=== PATIENT | male | born 1960 | race Caucasian/White ===

== ENCOUNTER → 2017-12-17 18:02 | Outpatient (CLI) | payer MEDICAID ==
[2017-12-17 18:49] LABS: BASOPHILS 0.1 % (0-2); EOSINOPHILS 0 % (0-7); HEMATOCRIT 30.7 % (42.0-54.0); HEMOGLOBIN 9.6 g/dL (13.5-17.5); IMMATURE GRANULOCYTES 0.1 % (0-5); LYMPHOCYTES 38.9 % (15-50); MCH 29.4 pg (26.0-34.0); MCHC 31.3 g/dL (31.0-37.0); MCV 94.2 fL (80.0-100.0); MEAN PLATELET VOLUME 11.6 fL (7.4-10.4); MONOCYTES 9.4 % (2-11); NEUTROPHILS 51.5 % (40-80); PLATELET COUNT 203 10x3/uL (130-400); RBC 3.26 10x6/uL (4.20-6.10); RDW 14.8 % (11.5-14.5)
[2017-12-17 19:13] LABS: ALKALINE PHOSPHATASE 260 U/L (46-116); ALT (SGPT) 32 U/L (10-68); BILIRUBIN - TOTAL 0.33 mg/dL (0.2-1.3); CALC OSMOLALITY 269 mosm/kg (275-300); CALCIUM 8.5 mg/dL (8.5-10.1); CARBON DIOXIDE 27.5 mmol/L (21.0-32.0); CHLORIDE - SERUM 98 mmol/L (98-107); CREATININE - SERUM 0.8 mg/dL (0.6-1.3); GLUCOSE 126 mg/dL (74-106); MAGNESIUM - SERUM 1.9 mg/dL (1.8-2.4); PHOSPHOROUS 2.6 mg/dL (2.5-4.9); POTASSIUM - SERUM 3.8 mmol/L (3.5-5.1); PROTEIN - SERUM 8.1 g/dL (6.4-8.2); SODIUM 132 mmol/L (136-145); TRIGLYCERIDE 70 mg/dL (30-200); UREA NITROGEN 21 mg/dL (7-18); eGFR NON AFRICAN AMERICAN > 90 mL/min (90-120)
== END | disposition home or self-care (01) ==
LOC: D.LABREF 18:02
PROVIDERS: Family Medicine
DX: K63.2 Fistula of intestine (principal)

== ENCOUNTER → 2017-12-22 13:38 | Outpatient (CLI) | payer MEDICAID ==
[2017-12-22 16:16] LABS: BASOPHILS 0.1 % (0-2); EOSINOPHILS 0 % (0-7); HEMATOCRIT 31.3 % (42.0-54.0); HEMOGLOBIN 9.9 g/dL (13.5-17.5); IMMATURE GRANULOCYTES 0.3 % (0-5); LYMPHOCYTES 34.1 % (15-50); MCH 29.6 pg (26.0-34.0); MCHC 31.6 g/dL (31.0-37.0); MCV 93.4 fL (80.0-100.0); MEAN PLATELET VOLUME 11.5 fL (7.4-10.4); MONOCYTES 6.9 % (2-11); NEUTROPHILS 58.6 % (40-80); PLATELET COUNT 230 10x3/uL (130-400); RBC 3.35 10x6/uL (4.20-6.10); RDW 14.9 % (11.5-14.5); WBC 6.9 10x3/uL (4.8-10.8)
[2017-12-22 16:35] LABS: ALBUMIN 2.2 g/dL (3.4-5.0); ALKALINE PHOSPHATASE 293 U/L (46-116); ALT (SGPT) 55 U/L (10-68); BILIRUBIN - DIRECT 0.09 mg/dL (0.00-0.30); BILIRUBIN - INDIRECT 0.22 mg/dL (0.00-1.00); BILIRUBIN - TOTAL 0.31 mg/dL (0.2-1.3); CALC OSMOLALITY 273 mosm/kg (275-300); CARBON DIOXIDE 28.3 mmol/L (21.0-32.0); CHLORIDE - SERUM 98 mmol/L (98-107); CREATININE - SERUM 0.9 mg/dL (0.6-1.3); GLUCOSE 116 mg/dL (74-106); MAGNESIUM - SERUM 1.9 mg/dL (1.8-2.4); PHOSPHOROUS 2.8 mg/dL (2.5-4.9); POTASSIUM - SERUM 3.8 mmol/L (3.5-5.1); PROTEIN - SERUM 8.5 g/dL (6.4-8.2); SODIUM 135 mmol/L (136-145); TRIGLYCERIDE 80 mg/dL (30-200); UREA NITROGEN 20 mg/dL (7-18); eGFR NON AFRICAN AMERICAN > 90 mL/min (90-120)
== END | disposition home or self-care (01) ==
LOC: D.LABREF 13:38
PROVIDERS: Family Medicine
DX: K63.2 Fistula of intestine (principal); T81.30XA Disruption of wound, unspecified, initial encounter

== ENCOUNTER → 2018-01-05 14:02 | Outpatient (CLI) | payer MEDICAID ==
[2018-01-05 15:32] LABS: BASOPHILS 0.3 % (0-2); EOSINOPHILS 0 % (0-7); HEMATOCRIT 32.5 % (42.0-54.0); HEMOGLOBIN 10.2 g/dL (13.5-17.5); LYMPHOCYTES 36.5 % (15-50); MCH 29.1 pg (26.0-34.0); MCHC 31.4 g/dL (31.0-37.0); MCV 92.6 fL (80.0-100.0); MEAN PLATELET VOLUME 11.6 fL (7.4-10.4); MONOCYTES 7.4 % (2-11); NEUTROPHILS 55.8 % (40-80); PLATELET COUNT 228 10x3/uL (130-400); RBC 3.51 10x6/uL (4.20-6.10); RDW 15.4 % (11.5-14.5); WBC 5.9 10x3/uL (4.8-10.8)
[2018-01-05 15:49] LABS: ALBUMIN 2.4 g/dL (3.4-5.0); BILIRUBIN - DIRECT 0.06 mg/dL (0.00-0.30); BILIRUBIN - INDIRECT 0.13 mg/dL (0.00-1.00); BILIRUBIN - TOTAL 0.19 mg/dL (0.2-1.3); CALCIUM 8.8 mg/dL (8.5-10.1); CARBON DIOXIDE 25.7 mmol/L (21.0-32.0); CREATININE - SERUM 1.1 mg/dL (0.6-1.3); POTASSIUM - SERUM 3.7 mmol/L (3.5-5.1); PROTEIN - SERUM 8.2 g/dL (6.4-8.2)
== END | disposition home or self-care (01) ==
LOC: D.LABREF 14:02
PROVIDERS: Specialist
DX: K63.2 Fistula of intestine (principal)

== ENCOUNTER → 2018-01-26 12:53 | Outpatient (CLI) | payer MEDICAID ==
[2018-01-26 15:38] LABS: BASOPHILS 0.6 % (0-2); EOSINOPHILS 0 % (0-7); HEMATOCRIT 31.8 % (42.0-54.0); HEMOGLOBIN 10.1 g/dL (13.5-17.5); LYMPHOCYTES 42.7 % (15-50); MCH 28.4 pg (26.0-34.0); MCHC 31.8 g/dL (31.0-37.0); MCV 89.3 fL (80.0-100.0); MEAN PLATELET VOLUME 11.4 fL (7.4-10.4); MONOCYTES 10.6 % (2-11); NEUTROPHILS 46.1 % (40-80); PLATELET COUNT 215 10x3/uL (130-400); RBC 3.56 10x6/uL (4.20-6.10); RDW 15.7 % (11.5-14.5); WBC 5.2 10x3/uL (4.8-10.8)
[2018-01-26 15:57] LABS: ALBUMIN 2.6 g/dL (3.4-5.0); ALKALINE PHOSPHATASE 507 U/L (46-116); ALT (SGPT) 36 U/L (10-68); BILIRUBIN - DIRECT 0.14 mg/dL (0.00-0.30); BILIRUBIN - INDIRECT 0.07 mg/dL (0.00-1.00); BILIRUBIN - TOTAL 0.21 mg/dL (0.2-1.3); CALC OSMOLALITY 264 mosm/kg (275-300); CALCIUM 8.6 mg/dL (8.5-10.1); CARBON DIOXIDE 28.5 mmol/L (21.0-32.0); CHLORIDE - SERUM 96 mmol/L (98-107); CREATININE - SERUM 0.9 mg/dL (0.6-1.3); MAGNESIUM - SERUM 1.6 mg/dL (1.8-2.4); PHOSPHOROUS 3.1 mg/dL (2.5-4.9); PROTEIN - SERUM 7.6 g/dL (6.4-8.2); SODIUM 130 mmol/L (136-145); TRIGLYCERIDE 175 mg/dL (30-200); UREA NITROGEN 23 mg/dL (7-18); eGFR NON AFRICAN AMERICAN > 90 mL/min (90-120)
[2018-01-26 15:59] LABS: GLUCOSE 95 mg/dL (74-106)
== END | disposition home or self-care (01) ==
LOC: D.LABREF 12:53
PROVIDERS: Internal Medicine Nephrology
DX: K63.2 Fistula of intestine (principal)

== ENCOUNTER → 2018-02-02 12:09 | Outpatient (CLI) | payer MEDICAID ==
[2018-02-02 13:19] LABS: ALKALINE PHOSPHATASE 558 U/L (46-116); ALT (SGPT) 49 U/L (10-68); BILIRUBIN - DIRECT 0.05 mg/dL (0.00-0.30); BILIRUBIN - TOTAL 0.15 mg/dL (0.2-1.3); CALC OSMOLALITY 269 mosm/kg (275-300); CALCIUM 9.4 mg/dL (8.5-10.1); CARBON DIOXIDE 25.9 mmol/L (21.0-32.0); CHLORIDE - SERUM 96 mmol/L (98-107); CREATINE KINASE 31 UL (21-232); GLUCOSE 139 mg/dL (74-106); PHOSPHOROUS 2.9 mg/dL (2.5-4.9); POTASSIUM - SERUM 4.5 mmol/L (3.5-5.1); PROTEIN - SERUM 8.9 g/dL (6.4-8.2); SODIUM 131 mmol/L (136-145); TRIGLYCERIDE 135 mg/dL (30-200); UREA NITROGEN 27 mg/dL (7-18); eGFR NON AFRICAN AMERICAN 81 mL/min (90-120)
[2018-02-02 13:49] LABS: BASOPHILS 0.2 % (0-2); EOSINOPHILS 0 % (0-7); HEMATOCRIT 34.5 % (42.0-54.0); HEMOGLOBIN 10.8 g/dL (13.5-17.5); MCH 27.9 pg (26.0-34.0); MCHC 31.3 g/dL (31.0-37.0); MCV 89.1 fL (80.0-100.0); MEAN PLATELET VOLUME 12.3 fL (7.4-10.4); MONOCYTES 10.5 % (2-11); NEUTROPHILS 42.3 % (40-80); PLATELET COUNT 209 10x3/uL (130-400); RBC 3.87 10x6/uL (4.20-6.10); RDW 16.2 % (11.5-14.5); WBC 4.3 10x3/uL (4.8-10.8)
== END | disposition home or self-care (01) ==
LOC: D.LABREF 12:09
PROVIDERS: Specialist
DX: L98.8 Other specified disorders of the skin and subcutaneous tissue (principal)

== ENCOUNTER → 2018-02-09 13:01 | Outpatient (CLI) | payer MEDICAID ==
[2018-02-09 15:29] LABS: BASOPHILS 0.4 % (0-2); EOSINOPHILS 0 % (0-7); HEMATOCRIT 29.3 % (42.0-54.0); HEMOGLOBIN 9.1 g/dL (13.5-17.5); IMMATURE GRANULOCYTES 0.2 % (0-5); LYMPHOCYTES 47.7 % (15-50); MCH 28.2 pg (26.0-34.0); MCHC 31.1 g/dL (31.0-37.0); MCV 90.7 fL (80.0-100.0); MONOCYTES 12.2 % (2-11); NEUTROPHILS 39.5 % (40-80); PLATELET COUNT 179 10x3/uL (130-400); RBC 3.23 10x6/uL (4.20-6.10); RDW 16.5 % (11.5-14.5); WBC 4.9 10x3/uL (4.8-10.8)
[2018-02-09 15:56] LABS: ALBUMIN 2.4 g/dL (3.4-5.0); ALKALINE PHOSPHATASE 425 U/L (46-116); ALT (SGPT) 36 U/L (10-68); BILIRUBIN - DIRECT 0.06 mg/dL (0.00-0.30); BILIRUBIN - TOTAL 0.16 mg/dL (0.2-1.3); CALC OSMOLALITY 278 mosm/kg (275-300); CALCIUM 8.3 mg/dL (8.5-10.1); CARBON DIOXIDE 29.6 mmol/L (21.0-32.0); CHLORIDE - SERUM 101 mmol/L (98-107); CREATINE KINASE 24 UL (21-232); GLUCOSE 110 mg/dL (74-106); MAGNESIUM - SERUM 2.1 mg/dL (1.8-2.4); PHOSPHOROUS 3.5 mg/dL (2.5-4.9); POTASSIUM - SERUM 4.8 mmol/L (3.5-5.1); PROTEIN - SERUM 7.4 g/dL (6.4-8.2); SODIUM 136 mmol/L (136-145); TRIGLYCERIDE 179 mg/dL (30-200); UREA NITROGEN 28 mg/dL (7-18); eGFR NON AFRICAN AMERICAN 81 mL/min (90-120)
== END | disposition home or self-care (01) ==
LOC: D.LABREF 13:01
PROVIDERS: Specialist
DX: K63.2 Fistula of intestine (principal)

== ENCOUNTER → 2018-02-23 11:47 | Outpatient (CLI) | payer MEDICAID ==
[2018-02-23 12:41] LABS: BASOPHILS 0.3 % (0-2); EOSINOPHILS 0 % (0-7); HEMATOCRIT 35.7 % (42.0-54.0); HEMOGLOBIN 11.7 g/dL (13.5-17.5); IMMATURE GRANULOCYTES 0.1 % (0-5); LYMPHOCYTES 41.3 % (15-50); MCH 28.3 pg (26.0-34.0); MCHC 32.8 g/dL (31.0-37.0); MCV 86.2 fL (80.0-100.0); MEAN PLATELET VOLUME 11.3 fL (7.4-10.4); MONOCYTES 10.5 % (2-11); NEUTROPHILS 47.8 % (40-80); RBC 4.14 10x6/uL (4.20-6.10); RDW 17.3 % (11.5-14.5); WBC 7.5 10x3/uL (4.8-10.8)
[2018-02-23 12:43] LABS: PLATELET COUNT 344 10x3/uL (130-400)
[2018-02-23 12:52] LABS: ANION GAP 13.3 mmol/L (8-16); BILIRUBIN - INDIRECT 0.33 mg/dL (0.00-1.00); BILIRUBIN - TOTAL 0.37 mg/dL (0.2-1.3); CALCIUM 9.6 mg/dL (8.5-10.1); CARBON DIOXIDE 23.9 mmol/L (21.0-32.0); CREATININE - SERUM 1.1 mg/dL (0.6-1.3); MAGNESIUM - SERUM 1.7 mg/dL (1.8-2.4); PHOSPHOROUS 4.5 mg/dL (2.5-4.9); POTASSIUM - SERUM 4.2 mmol/L (3.5-5.1)
[2018-02-23 12:56] LABS: BILIRUBIN - DIRECT 0.04 mg/dL (0.00-0.30)
== END | disposition home or self-care (01) ==
LOC: D.LABREF 11:47
PROVIDERS: Specialist
DX: K63.2 Fistula of intestine (principal)

== ENCOUNTER → 2018-03-02 13:44 | Outpatient (CLI) | payer MEDICAID ==
[2018-03-02 15:07] LABS: BASOPHILS 0.9 % (0-2); EOSINOPHILS 0 % (0-7); HEMATOCRIT 31.9 % (42.0-54.0); HEMOGLOBIN 10.3 g/dL (13.5-17.5); IMMATURE GRANULOCYTES 0.1 % (0-5); LYMPHOCYTES 36.4 % (15-50); MCH 28.1 pg (26.0-34.0); MCHC 32.3 g/dL (31.0-37.0); MCV 86.9 fL (80.0-100.0); MEAN PLATELET VOLUME 10.8 fL (7.4-10.4); MONOCYTES 13.8 % (2-11); NEUTROPHILS 48.8 % (40-80); PLATELET COUNT 307 10x3/uL (130-400); RBC 3.67 10x6/uL (4.20-6.10); RDW 17.2 % (11.5-14.5); WBC 6.7 10x3/uL (4.8-10.8)
[2018-03-02 15:32] LABS: ANION GAP 16.4 mmol/L (8-16); BILIRUBIN - DIRECT 0.15 mg/dL (0.00-0.30); BILIRUBIN - INDIRECT 0.3 mg/dL (0.00-1.00); BILIRUBIN - TOTAL 0.45 mg/dL (0.2-1.3); CALCIUM 9.9 mg/dL (8.5-10.1); CREATININE - SERUM 1.2 mg/dL (0.6-1.3); MAGNESIUM - SERUM 1.4 mg/dL (1.8-2.4); PHOSPHOROUS 4.6 mg/dL (2.5-4.9); POTASSIUM - SERUM 4.4 mmol/L (3.5-5.1); PROTEIN - SERUM 8.9 g/dL (6.4-8.2); VANCOMYCIN - TROUGH 20.1 ug/mL (10.0-20.0)
== END | disposition home or self-care (01) ==
LOC: D.LABREF 13:44
PROVIDERS: Family Medicine
DX: K63.2 Fistula of intestine (principal)

== ENCOUNTER → 2018-03-06 11:00 | Outpatient (CLI) | payer MEDICAID ==
[2018-03-06 13:56] LABS: VANCOMYCIN - RANDOM 5.3 ug/mL (10.0-20.0)
== END | disposition home or self-care (01) ==
LOC: D.LABREF 11:00
PROVIDERS: Family Medicine
DX: K63.2 Fistula of intestine (principal); R78.81 Bacteremia; B37.7 Candidal sepsis